=== PATIENT | female | born 1945 | race American Indian/Alaskan Native ===

== ENCOUNTER 2017-06-06 20:30 | Emergency (ER) | payer MEDICARE, BC ==
[2017-06-06 21:53] VITALS: BMI 26.1
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
[2017-06-07 00:17] VITALS: BP 130/89; PULSE 88; RESP 19; TEMP 98.9; O2SAT 98
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
== END 2017-06-07 00:17 | disposition home or self-care (01) ==
LOC: ED 20:30
DX: S52.502A Unspecified fracture of the lower end of left radius, initial encounter for closed fracture (principal); Y04.0XXA Assault by unarmed brawl or fight, initial encounter

== ENCOUNTER 2017-06-24 07:18 | Emergency (ER) | payer MEDICARE, BC ==
[2017-06-24 07:19] VITALS: BMI 26.1
--- NOTE | 2017-06-24 08:59 | RAD ---
PROCEDURE: Radiographs of the left humerus. HISTORY: recent fall COMPARISON: None. FINDINGS: BONES: Two views of the left humerus were performed for left humeral pain and trauma. There is evidence of a chronic healed fracture of the midshaft of the left humerus. No acute fracture is seen. Distal humerus and visualized left elbow are unremarkable as well as the visualized left forearm. Left humeral head appears intact. No dislocation is seen. SOFT TISSUES: Normal. OTHER FINDINGS: None. IMPRESSION: No acute fracture. Chronic healed left humeral fracture.
--- NOTE | 2017-06-24 09:00 | RAD ---
PROCEDURE: Radiographs of the Left Shoulder HISTORY: shoulder pain COMPARISON: No prior. FINDINGS: BONES: Two views of the left shoulder were performed. No fracture is seen. 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 No calcific bursitis is seen. Bony glenoid is intact. Left ribs are unremarkable. Visualized portions of the lungs reveal no evidence of infiltrate. No pneumothorax is seen. JOINTS: Degenerative changes. No dislocation. SOFT TISSUES: Normal. OTHER FINDINGS: None. IMPRESSION: No appreciable fracture or dislocation.
--- NOTE | 2017-06-24 10:08 | ED PDOC ---
Arrival/HPI - General Chief Complaint: Upper Extremity Problem/Injury Time Seen by Provider: 06/24/17 07:31 Historian: Patient - History of Present Illness Narrative History of Present Illness (Text): 06/24/17 10:10 A 72 year old female, who last reported to the emergency department on 06/06/17 s/ p fall and was diagnosed with distal radial fracture and shoulder pain (with splint put in), presents to the emergency department today complaining of continued left shoulder pain, more prominent in posterior and over left scapular region. Patient denies any other complaints at this time. Symptom Onset: Sudden Symptom Course: Unchanged Activities at Onset: Rest Context: Home Past Medical History - Provider Review Nursing Documentation Reviewed: Yes - Infectious Disease Hx of Infectious Diseases: None - Reproductive Menopause: Yes - Cardiac Hx Cardiac Disorders: No - Pulmonary Hx Respiratory Disorders: No - Neurological Hx Neurological Disorder: No - HEENT Hx HEENT Disorder: No - Renal Hx Renal Disorder: No - Endocrine/Metabolic Hx Endocrine Disorders: No - Hematological/Oncological Hx Blood Disorders: No - Integumentary Hx Dermatological Disorder: No - Musculoskeletal/Rheumatological Hx Musculoskeletal Disorders: No - Gastrointestinal Hx Gastrointestinal Disorders: No - Genitourinary/Gynecological Hx Genitourinary Disorders: No - Psychiatric Hx Psychophysiologic Disorder: No Hx Substance Use: No - Anesthesia Hx Anesthesia: No Hx Anesthesia Reactions: No Hx Malignant Hyperthermia: No Family/Social History - Physician Review Nursing Documentation Reviewed: Yes Family/Social History: No Known Family HX Smoking Status: Never Smoked Hx Alcohol Use: No Hx Substance Use: No Allergies/Home Meds Allergies/Adverse Reactions: Allergies No Known Allergies Allergy (Verified 06/06/17 21:38) Review of Systems - Physician Review All systems were reviewed & negative as marked: Yes - Review of Systems Constitutional: absent: Fevers Musculoskeletal: Other (left shoulder pain, posterior and over left scapular region) Physical Exam Vital Signs Reviewed: Yes Vital Signs Temp Pulse Resp BP Pulse Ox 06/24/17 09:41 85 20 132/72 99 06/24/17 07:27 97.8 F 79 20 159/90 H 99 Temperature: Afebrile Blood Pressure: Hypertensive Pulse: Regular Respiratory Rate: Normal Appearance: Positive for: Well-Appearing, Non-Toxic, Comfortable Pain Distress: None Mental Status: Positive for: Alert and Oriented X 3 - Systems Exam Head: Present: Atraumatic, Normocephalic Pupils: Present: PERRL Extroacular Muscles: Present: EOMI Conjunctiva: Present: Normal Mouth: Present: Moist Mucous Membranes Neck: Present: Normal Range of Motion Respiratory/Chest: Present: Clear to Auscultation, Good Air Exchange. No: Respiratory Distress, Accessory Muscle Use Cardiovascular: Present: Regular Rate and Rhythm, Normal S1, S2. No: Murmurs Abdomen: Present: Normal Bowel Sounds. No: Tenderness, Distention, Peritoneal Signs Back: Present: Normal Inspection Upper Extremity: Present: Swelling (left sided wrist, more prominent over distal ulnar region), Other (tenderness to palpation to anatomic snuffbox region ; no r,u,m sensory deficits; 5/5 strength throughout tenderness along left parathoracic region; mild tenderness medial scapular area and over posterior shoulder; no humerus tenderness). No: Cyanosis Lower Extremity: Present: Normal Inspection. No: Edema Neurological: Present: GCS=15, CN II-XII Intact, Speech Normal Skin: Present: Warm, Dry, Normal Color. No: Rashes Psychiatric: Present: Alert, Oriented x 3, Normal Insight, Normal Concentration Medical Decision Making ED Course and Treatment: 06/24/17 10:05 Impression: A 72 year old female with distal radial fracture on 06/06/17, with continued pain in posterior and over left scapular region. Plan: -- Radiology left shoulder -- Radiology left humerus -- Flexeril, Toradol, Tylenol -- Reassess and disposition Prior Visits: Notes and results from previous visits were reviewed. Patient was last seen in the emergency department on 06/06/17 for evaluation of left wrist pain. Progress Notes: 06/24/17 09:02 Radiographs of the Left Shoulder Creator : Brina Wood MD FINDINGS: BONES: Two views of the left shoulder were performed. No fracture is seen. 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 No calcific bursitis is seen. Bony glenoid is intact. Left ribs are unremarkable. Visualized portions of the lungs reveal no evidence of infiltrate. No pneumothorax is seen. JOINTS: Degenerative changes. No dislocation. SOFT TISSUES: Normal. IMPRESSION: No appreciable fracture or dislocation. 06/24/17 09:00 Radiographs of the left humerus Creator : Brina Wood MD FINDINGS: BONES: Two views of the left humerus were performed for left humeral pain and trauma. There is evidence of a chronic healed fracture of the midshaft of the left humerus. No acute fracture is seen. Distal humerus and visualized left elbow are unremarkable as well as the visualized left forearm. Left humeral head appears intact. No dislocation is seen. SOFT TISSUES: Normal. IMPRESSION: No acute fracture. Chronic healed left humeral fracture. 06/24/17 11:17 LEFT FOREARM PLACED IN THUMB/ SPICA/DOUBLE SUGAR TONG IN LIGHT COMMINUTED DISTAL RADIAL FRACTURE s/p placement , arm neurovascularly intact without new deficit HUMERUS AND SHOUDLER XRAYS APPRECIATED NEGATIVE SERIAL NEUROLOGICAL EXAMS NEGATIVE. PT TO BE DISCHARGED WITH ORTHPEDIC F/CASAS /PAIN MEDICINE AND MUSCLE RELAXANTS 06/24/17 11:26 - RAD Interpretation Radiology Orders: 06/24/17 07:31 SHOULDER LEFT [RAD] Stat 06/24/17 08:43 HUMERUS LEFT [RAD] Stat - Medication Orders Current Medication Orders: Discontinued Medications Acetaminophen (Tylenol 325mg Tab) 650 mg PO STAT STA Stop: 06/24/17 07:33 Last Admin: 06/24/17 08:01 Dose: 650 mg DIGNA Pain/Vitals Document 06/24/17 08:01 LA (Rec: 06/24/17 08:02 NC [id number]) Pain Reassessment Is This A Pain ReAssessment? No Sleep Is patient sleeping during reassessment? No Presence of Pain Presence of Pain Yes Pain Scale Used Pain Scale Used Numeric Location Left, Right or Bilateral Left Pain Location Body Site Shoulder Intensity 10 Scale Used Numeric Cyclobenzaprine HCl (Flexeril) 10 mg PO STAT STA Stop: 06/24/17 07:47 Last Admin: 06/24/17 08:01 Dose: 10 mg Ketorolac Tromethamine (Toradol) 15 mg IM STAT STA Stop: 06/24/17 07:47 Last Admin: 06/24/17 07:59 Dose: 15 mg MAR Pain Assessment Document 06/24/17 07:59 LA (Rec: 06/24/17 08:00 LA [id number]) Pain Reassessment Is this a pain reassessment? No Sleep Is patient sleeping during reassessment? No Presence of Pain Presence of Pain Yes Pain Scale Used Pain Scale Used Numeric Location Left, Right or Bilateral Right Pain Location Body Site Shoulder Description Description Constant Intensity of Pain at present 10 IM Administration Charges Document 06/24/17 07:59 LA (Rec: 06/24/17 08:00 ALVERTO [id number]) Injection Site MAR Injection Site Left Gluteus Eligio Charges for Administration # of IM Administrations 1 - Scribe Statement The provider has reviewed the documentation as recorded by the Pallavi Watson Provider Scribe Attestation: All medical record entries made by the Scribe were at my direction and personally dictated by me. I have reviewed the chart and agree that the record accurately reflects my personal performance of the history, physical exam, medical decision making, and the department course for this patient. I have also personally directed, reviewed, and agree with the discharge instructions and disposition. Disposition/Present on Arrival - Present on Arrival Any Indicators Present on Arrival: No History of DVT/PE: No History of Uncontrolled Diabetes: No Urinary Catheter: No History of Decub. Ulcer: No History Surgical Site Infection Following: None - Disposition Have Diagnosis and Disposition been Completed?: Yes Diagnosis: Back muscle spasm, Rotator cuff tendinitis, Radius distal fracture Disposition: HOME/ ROUTINE Disposition Time: 11:19 Patient Plan: Discharge Patient Problems: Current Active Problems Problem Status Onset Back muscle spasm Acute Radius distal fracture Acute Rotator cuff tendinitis Acute Condition: IMPROVED Discharge Instructions (ExitCare): Wrist Fracture in Adults (ED), Rotator Cuff Tendinitis (ED) Print Language: VIET[place]ESE Additional Instructions: You must follow up with the orthpedist specialist regarding your left distal radius frcture. MAINTAIN THE ARM/WRIST IN IMMOBILIXZATION SPLINT. aPPLY ICE Regarding your shoulder you have developed a paraspinal back spasm as well as rotor cuff tenditnitis as a result of the fall. This should resolve with gentle range of motion exercises as well as a course of antiinflammatory meds over the next few weeks. massage can also help ease the back spasm. Prescriptions: Cyclobenzaprine [Cyclobenzaprine HCl] 10 mg PO 18 PRN #18 tab PRN Reason: spasm Famotidine [Pepcid] 20 mg PO BID PRN #20 tab PRN Reason: Dyspepsia Ibuprofen [Motrin Tab] 600 mg PO Q6 PRN #40 tab PRN Reason: Pain, Moderate (4-7) traMADol [Ultram] 50 mg PO Q6 PRN #18 tab PRN Reason: Pain, Severe (8-10) Referrals: PCP,NO [Primary Care Provider] - Follow up with primary Delfino Vera MD [Staff Provider] - Follow up with primary Beka Lu DO [Staff Provider] - Follow up with primary Forms: Anygma (Persian)
[2017-06-24] MEDS ORDERED: Oxycodone/Acetaminophen 5/325 mg Tab PO STA (11:43)
[2017-06-24 11:53] VITALS: BP 130/73; PULSE 80; RESP 18; TEMP 98; O2SAT 97
== END 2017-06-24 11:58 | disposition home or self-care (01) ==
LOC: ED 07:18
DX: S52.502A Unspecified fracture of the lower end of left radius, initial encounter for closed fracture (principal); W19.XXXA Unspecified fall, initial encounter; M62.830 Muscle spasm of back; M75.92 Shoulder lesion, unspecified, left shoulder
CPT/HCPCS: 73030; 73060; 96372; 99284; J1885